=== PATIENT | born 1980 | race Asian ===

== ENCOUNTER 2025-04-07 09:01 | Outpatient (CLI) | payer OTHER, SELFPAY ==
[2025-04-07 18:48] LABS: Iron 115 ug/dL (37-181)
[2025-04-07 18:51] LABS: Alanine Aminotransferase 16 U/L (6-50); Albumin Level 4.7 g/dL (3.5-5.1); Alkaline Phosphatase 50 U/L (38-126); Anion Gap 8 mmol/L (4-12); Aspartate Amino Transferase 51 U/L (17-59); Bilirubin,Total 0.5 mg/dL (0.2-1.3); Blood Urea Nitrogen 11 mg/dL (7-20); Calcium 9.2 mg/dL (8.4-10.2); Carbon Dioxide 26 mmol/L (22-30); Chloride 105 mmol/L (96-107); Cholesterol 229 mg/dL (0-200); Estimated Glomerular Filt Rate > 60; Glucose 79 mg/dL (65-110); HDL Direct 50 mg/dL; Potassium 3.7 mmol/L (3.4-5.0); Sodium 139 mmol/L (137-145); Total Protein 8.0 g/dL (6.3-8.2); Triglycerides 128 mg/dL (<150)
[2025-04-07 18:54] LABS: Hematocrit 33.6 % (37.0-52.0); Hemoglobin 11.2 g/dL (12.0-18.0); Immature Granulocyte Percent A 0.0 % (0-0.5); Lymphocytes Absolute Auto 1.16 K/mm3 (0.9-3.2); Mean Corpuscular HGB Conc 33.3 g/dl (32-36); Mean Corpuscular Hemoglobin 32.2 pg (26-34); Mean Corpuscular Volume 96.6 fl (80-100); Nucleated Red Blood Cells Absolute Auto 0.000 K/mm3 (0.0-0.012); Nucleated Red Blood Cells Perc 0.0 % (0.0-0.2); Platelet Count Result 291 k/mm3 (150-375); Red Blood Count 3.48 M/mm3 (4.2-6.2); White Blood Count 2.9 K/mm3 (4.5-10.0)
[2025-04-07 18:58] LABS: Percent Iron Saturation 32 % (20-50)
[2025-04-07 19:17] LABS: Hemoglobin A1C 4.9 % (<5.7)
[2025-04-07 19:24] LABS: Ferritin 15.10 ng/mL (6.24-464)
[2025-04-07 19:27] LABS: Thyroid Stimulating Hormone 2.080 uIU/mL (0.465-4.680)
[2025-04-08 07:09] LABS: FSH 4.0 mIU/mL (.); LH 2.3 mIU/mL (.)
== END 2025-04-07 09:02 | disposition home or self-care (01) ==
LOC: ANHGOSHLAB 09:03
PROVIDERS: PCP Internal Medicine; Visit Provider Clinical Nurse Specialist
DX: Z13.29 Encounter for screening for other suspected endocrine disorder (principal); Z13.220 Encounter for screening for lipoid disorders; E55.9 Vitamin D deficiency, unspecified; R20.0 Anesthesia of skin; R20.2 Paresthesia of skin; E34.9 Endocrine disorder, unspecified; R74.8 Abnormal levels of other serum enzymes
CPT/HCPCS: 36415; 80053; 80061; 82306; 82728; 83001; 83002; 83036; 83540; 83550; 84144; 84146; 84443; 85025